=== PATIENT | female | born 1950 | race Caucasian/White ===

== ENCOUNTER 2018-09-14 13:34 | Inpatient (IN) | payer MEDICARE, MEDICAID ==
[2018-09-14] MEDS ORDERED: NORMAL SALINE 1000 ML 1,000 ML IV ONE ×3 (14:05→16:19)
[2018-09-14] MEDS ORDERED: DILTIAZEM HCL/D5W 125 MG/125 ML RTUINJ IV PRN (14:17)
[2018-09-14] MEDS ORDERED: DILTIAZEM HCL INJ 25 MG/5 ML VIAL IV ONE (14:18)
--- NOTE | 2018-09-14 14:25 | ER Document Report ---
ED Blood Sugar Problem - General Chief Complaint: High Blood Sugar Stated Complaint: WEAKNESS/THIRSTY Time Seen by Provider: 09/14/18 13:58 Mode of Arrival: Medic Notes: 68-year-old female with a history of type 1 diabetes and COPD presents the emergency department with increased thirst, dehydration, hyperglycemia, tachycardia, generalized weakness. Patient has insulin pump in place. EMS attempted to check her blood sugar and it was reading high. Patient altered in the ED. Unable to provide history. Daughter at bedside. Says that yesterday patient began complaining of her symptoms. Her blood sugar was in the 300s. Daughter denies complaints of fever, chest pain, shortness of breath, abdominal pain, dysuria, increased urgency. Has a history of cellulitis to the L 4th toe that she is on 2 antibiotics for. Daughter is unsure of the antibiotics. Daughter says the cellulitis is improved. TRAVEL OUTSIDE OF THE [place] IN LAST 30 DAYS: No - HPI Onset: Just prior to arrival Onset/Duration: Sudden Quality of pain: No pain Severity: Severe Associated symptoms: Confusion, Increased thirst, Nausea, Weakness Recently seen / treated by doctor: No - Related Data Allergies/Adverse Reactions: No Known Allergies Allergy (Verified 09/14/18 14:22) Past Medical History - Social History Smoking Status: Former Smoker Family History: Reviewed & Not Pertinent - Past Medical History Cardiac Medical History: Reports: Hx Hypertension Neurological Medical History: Reports: Hx Cerebrovascular Accident Endocrine Medical History: Reports: Hx Diabetes Mellitus Type 1, Hx Hypothyroidism Psychiatric Medical History: Reports: Hx Depression - Immunizations Hx Diphtheria, Pertussis, Tetanus Vaccination: No Review of Systems - Review of Systems Constitutional: Weakness EENT: No symptoms reported Cardiovascular: No symptoms reported Respiratory: No symptoms reported Gastrointestinal: Nausea Genitourinary: No symptoms reported Female Genitourinary: No symptoms reported Musculoskeletal: No symptoms reported Skin: No symptoms reported Neurological/Psychological: Confusion -: Yes All other systems reviewed and negative Physical Exam - Vital signs Vitals: Resp 16 09/14/18 13:40 - Notes Notes: PHYSICAL EXAMINATION: GENERAL: Frail, ill appearing. HEAD: Atraumatic, Awake and alert to person and place. EYES: Pupils equal round and reactive to light, extraocular movements intact, conjunctiva are normal. ENT: Nares patent, oropharynx clear without exudates. Moist mucous membranes. NECK: Normal range of motion, supple without lymphadenopathy LUNGS: Breath sounds clear to auscultation bilaterally and equal. No wheezes rales or rhonchi. HEART: Irregularly irregular ABDOMEN: Soft, nontender, nondistended abdomen. No guarding, no rebound. No masses appreciated. Female : deferred Musculoskeletal: Normal range of motion, no pitting or edema. No cyanosis. No cellulitis appreciated to the L 4th toe where the daughter says it was previously. 2+ DP/PT pulses. NEUROLOGICAL: Cranial nerves grossly intact. Normal speech. Normal sensory, motor exams. PSYCH: Normal mood, normal affect. SKIN: Warm, Dry, normal turgor, no rashes or lesions noted. Course - Re-evaluation Re-evalutation: 09/14/18 14:19 EKG: Ventricular rate 138, QRS duration 112, QTc 528, atrial flutter/ fibrillation. 09/14/18 18:12 On arrival in the ED, Patient unable to provide history. Patient in atrial fibrillation. Given 20mg of cardizem. Labs and imaging ordered for altered mental status. VBG shows a pH of 6.89 with a bicarb of 4.9. Labs resulted and show DKA and hyperkalemia with a potassium of 7.1. Cardizem drip cancelled as the atrial fibrillation likely due to the hyperkalemia. Hyperkalemia treated with insulin drip, bicarb drip, kayexelate, albuterol, and calcium gluconate. WBC elevated. Patient on antibiotics for 4th Left toe cellulitis. Daughter says it's improved. I did not appreciate cellulitis on my physical exam. No tenderness to palpation of the toe. XR obtained. No osteomyelitis appreciated. CXR and urinalysis do not show an acute process. I started the patient on Vancomycin and Zosyn as the patient meets Sirs criteria without an identifiable source. I contacted Dr. Basurto for admission. He came to the bedside and evaluated the patient. Patient currently stable. 09/14/18 18:23 - Vital Signs Vital signs: Temp Pulse Resp BP Pulse Ox 97.0 F 24 H 127/58 H 98 09/14/18 16:40 09/14/18 18:01 09/14/18 18:01 09/14/18 18:01 - Laboratory Result Diagrams: 09/14/18 13:58 09/14/18 13:58 Laboratory results interpreted by me: 09/14/18 09/14/18 09/14/18 13:48 13:58 13:58 WBC 28.8 H MCV 98 H MCHC 29.8 L RDW 14.8 H Seg Neuts % (Manual) 86 H Lymphocytes % (Manual) 7 L Abs Neuts (Manual) 25.6 H VBG pH VBG pCO2 VBG HCO3 Sodium 128.5 L Potassium 7.1 H* Chloride 90 L Carbon Dioxide 5 L* Anion Gap 34 H BUN 29 H Creatinine 1.86 H Est GFR ( Amer) 33 L Est GFR (Non-Af Amer) 27 L Glucose 1040 H* POC Glucose > 550 H* Lactic Acid Alkaline Phosphatase 206 H Urine Protein Urine Glucose (UA) Urine Ketones 09/14/18 09/14/18 09/14/18 13:58 14:15 14:21 WBC MCV MCHC RDW Seg Neuts % (Manual) Lymphocytes % (Manual) Abs Neuts (Manual) VBG pH 6.89 L* VBG pCO2 26.4 L VBG HCO3 4.9 L Sodium Potassium Chloride Carbon Dioxide Anion Gap BUN Creatinine Est GFR ( Amer) Est GFR (Non-Af Amer) Glucose POC Glucose Lactic Acid 6.3 H Alkaline Phosphatase Urine Protein 30 H Urine Glucose (UA) >=500 H Urine Ketones 20 H Discharge - Discharge Clinical Impression: Hyperkalemia, SIRS (systemic inflammatory response syndrome) DKA, type 1 Qualifiers: Diabetes mellitus complication detail: without coma Qualified Code(s): E10.10 - Type 1 diabetes mellitus with ketoacidosis without coma Condition: Serious Disposition: ADMITTED INPATIENT Admitting Provider: Hospitalist Unit Admitted: ICU
[2018-09-14] MEDS ORDERED: ONDANSETRON 4 MG TAB.RAPDIS PO ONE (14:27)
[2018-09-14 14:28] LABS: HEMATOCRIT 41.9 % (36.0-47.0); HEMOGLOBIN 12.5 g/dL (12.0-15.5); MEAN CORPUSCULAR HEMOGLOBIN 29.2 pg (27.0-33.4); MEAN CORPUSCULAR HGB CONC 29.8 g/dL (32.0-36.0); MEAN CORPUSCULAR VOLUME 98 fl (80-97); PLATELET COUNT 369 10^3/uL (150-450); RED BLOOD COUNT 4.27 10^6/uL (3.72-5.28); RED CELL DISTRIBUTION WIDTH 14.8 % (11.5-14.0); WHITE BLOOD COUNT 28.8 10^3/uL (4.0-10.5)
[2018-09-14 14:30] LABS: ALANINE AMINOTRANSFERASE 19 U/L (9-52); ALBUMIN 4.3 g/dL (3.5-5.0); ALKALINE PHOSPHATASE 206 U/L (38-126); ASPARTATE AMINO TRANSFERASE 19 U/L (14-36); BILIRUBIN,DIRECT 0.4 mg/dL (0.0-0.4); BILIRUBIN,TOTAL 0.4 mg/dL (0.2-1.3); BLOOD UREA NITROGEN 29 mg/dL (7-20); TOTAL PROTEIN 6.7 g/dL (6.3-8.2)
[2018-09-14 14:35] LABS: ALCOHOL < 10 mg/dL (NONE DETECTED); CHLORIDE 90 mmol/L (98-107); SODIUM 128.5 mmol/L (137-145)
[2018-09-14 14:39] LABS: ANION GAP 34 (5-19)
[2018-09-14 14:40] LABS: CARBON DIOXIDE 5 mmol/L (22-30); GLUCOSE 1040 mg/dL (75-110); POTASSIUM 7.1 mmol/L (3.6-5.0)
[2018-09-14] MEDS ORDERED: DEXTROSE 40% GEL 15 GM TUBE PO PRN ×6 (14:51→17:42)
[2018-09-14] MEDS ORDERED: NORMAL SALINE 100 ML with INSULIN REGULAR, HUMAN 100 UNIT IV PRN ×4 (14:51→17:42)
[2018-09-14] MEDS ORDERED: DEXTROSE 50%-WATER 25 GM/50 ML DISP.SYRIN IV PRN ×6 (14:51→17:42)
[2018-09-14] MEDS ORDERED: GLUCAGON,HUMAN RECOMB 1 MG INJ IM PRN ×2 (14:51→17:42)
--- NOTE | 2018-09-14 14:51 | RADIOLOGY REPORT (SQ) ---
EXAM DESCRIPTION: CT HEAD WITHOUT COMPLETED DATE/TIME: 09/14/2018 2:34 pm REASON FOR STUDY: ams COMPARISON: 07/24/2015. TECHNIQUE: Axial images acquired through the brain without intravenous contrast. Images reviewed wi th bone, brain and subdural windows. Additional sagittal and coronal reconstructions were generated. Images stored on PACS. All CT scanners at this facility use dose modulation, iterative reconstruction, and/or weight based d osing when appropriate to reduce radiation dose to as low as reasonably achievable (ALARA). [facility]: Dose Right [facility]: CareDose [facility]: Dose Right [facility]: Teradose 4D [facility]: [employer] RADIATION DOSE: CT Rad equipment meets quality standard of care and radiation dose reduction techniq ues were employed. CTDIvol: 53.2 mGy. DLP: 991 mGy-cm. mGy. LIMITATIONS: None. FINDINGS: VENTRICLES: Normal size and contour. CEREBRUM: No masses. No hemorrhage. No midline shift. No evidence for acute infarction. Normal gra y/white matter differentiation. No areas of low density in the white matter. CEREBELLUM: No masses. No hemorrhage. No alteration of density. No evidence for acute infarction. EXTRAAXIAL SPACES: No fluid collections. No masses. ORBITS AND GLOBE: No intra- or extraconal masses. Normal contour of globe without masses. CALVARIUM: No fracture. PARANASAL SINUSES: No fluid or mucosal thickening. SOFT TISSUES: No mass or hematoma. OTHER: No other significant finding. IMPRESSION: NORMAL BRAIN CT WITHOUT CONTRAST. EVIDENCE OF ACUTE STROKE: NO. COMMENT: Quality ID # [id number]: Final reports with documentation of one or more dose reduction techniques (e.g., Automated exposure control, adjustment of the mA and/or kV according to patient size, use of iterative reconstruction technique) TECHNICAL DOCUMENTATION: JOB ID: [id number] [employer]- All Rights Reserved Reading location - IP/workstation name: [email or web address]
[2018-09-14] MEDS ORDERED: ALBUTEROL SULFATE 0.083% NEB 2.5 MG/3 ML AMPUL NEB ONE (14:53)
[2018-09-14] MEDS ORDERED: SODIUM POLYSTYRENE SULFONATE 15 GM/60 ML PO ONE (14:55)
--- NOTE | 2018-09-14 14:55 | RADIOLOGY REPORT (SQ) ---
EXAM DESCRIPTION: CHEST SINGLE VIEW COMPLETED DATE/TIME: 09/14/2018 2:37 pm REASON FOR STUDY: cough COMPARISON: 07/23/2015. NUMBER OF VIEWS: One view. TECHNIQUE: Single frontal radiographic view of the chest acquired. LIMITATIONS: None. FINDINGS: LUNGS AND PLEURA: Pleural and parenchymal scarring. No focal infiltrates, masses or pneum othorax. Nipple shadows in the lower chest. No pleural effusion. Attenuated blood vessels and adriane ened pollo-diaphragms. MEDIASTINUM AND HILAR STRUCTURES: No masses. Contour normal. HEART AND VASCULAR STRUCTURES: Heart normal in size. Normal vasculature. BONES: No acute findings. HARDWARE: None in the chest. OTHER: No other significant finding. IMPRESSION: COPD. CHRONIC SCARRING. NO ACUTE RADIOGRAPHIC FINDING IN THE CHEST. TECHNICAL DOCUMENTATION: JOB ID: [id number] [employer]- All Rights Reserved Reading location - IP/workstation name: [email or web address]
[2018-09-14 14:56] LABS: ABSOLUTE MONOCYTES # (MANUAL) 1.2 10^3/uL (0.1-1.4); ABSOLUTE NEUTROPHILS# (MANUAL) 25.6 10^3/uL (1.7-8.2); BAND NEUTROPHILS % (MANUAL) 3 % (3-5); BASOPHILS % (MANUAL) 0 % (0-2); EOSINOPHILS % (MANUAL) 0 % (0-6); LYMPHOCYTES % (MANUAL) 7 % (13-45); MONOCYTES % (MANUAL) 4 % (3-13); SEGMENTED NEUTROPHILS % (MAN) 86 % (42-78); TOTAL CELLS COUNTED 100
[2018-09-14 14:57] LABS: URINE AMPHETAMINES SCREEN NEGATIVE; URINE BARBITURATES SCREEN NEGATIVE; URINE BENZODIAZEPINES SCREEN NEGATIVE; URINE COCAINE SCREEN NEGATIVE; URINE MARIJUANA (THC) SCREEN NEGATIVE; URINE METHADONE SCREEN NEGATIVE
[2018-09-14 15:00] LABS: ANISOCYTOSIS SLIGHT; BURR CELLS 1+; OVALOCYTES 1+; PLATELET COMMENT ADEQUATE; POIKILOCYTOSIS 2+; TOXIC GRANULATION 1+; TOXIC VACUOLATION PRESENT
[2018-09-14] MEDS ORDERED: CALCIUM GLUCONATE 1000 MG/10 ML INJ IV ONE ×2 (15:00→16:01)
[2018-09-14 15:01] LABS: VENOUS BLOOD BASE EXCESS -27.3 mmol/L; VENOUS BLOOD HCO3 4.9 mmol/L (20-32); VENOUS BLOOD PCO2 26.4 mmHg (35-63)
[2018-09-14 15:02] LABS: URINE PHENCYCLIDINE SCREEN NEGATIVE
[2018-09-14] MEDS ORDERED: INSULIN REG, HUMAN 100 UNIT/ML 3 ML VIAL (PYX) ONE (15:02)
[2018-09-14 15:03] LABS: APPEARANCE,URINE SLIGHTLY-CLOUDY; BILIRUBIN,URINE NEGATIVE (NEGATIVE); COLOR,URINE YELLOW; GLUCOSE, URINE >=500 mg/dL (NEGATIVE); KETONES,URINE 20 mg/dL (NEGATIVE); LEUKOCYTE ESTERASE,URINE NEGATIVE (NEGATIVE); NITRITE,URINE NEGATIVE (NEGATIVE); PROTEIN,URINE 30 mg/dL (NEGATIVE); URINE SPECIFIC GRAVITY 1.018; UROBILINOGEN,URINE NEGATIVE mg/dL (<2.0)
[2018-09-14 15:05] LABS: VENOUS BLOOD PH 6.89 (7.30-7.42)
[2018-09-14] MEDS ORDERED: DEXTROSE 5%-WATER 1000 ML 1,000 ML with SODIUM BICARBONATE 150 MEQ IV PRN ×2 (15:17)
[2018-09-14] MEDS ORDERED: SODIUM BICARBONATE 8.4% INJ 50 MEQ/50 ML DISP.SYRIN ONE (15:30)
[2018-09-14] MEDS ORDERED: PIPERACILLIN/TAZOBACTAM 3.375 GM VIAL IV ONE (16:02)
[2018-09-14] MEDS ORDERED: VANCOMYCIN HCL INJ 1000 MG VIAL IV ONE (16:02)
--- NOTE | 2018-09-14 16:16 | RADIOLOGY REPORT (SQ) ---
EXAM DESCRIPTION: FOOT LEFT COMPLETE COMPLETED DATE/TIME: 09/14/2018 4:04 pm REASON FOR STUDY: cellulitis COMPARISON: None. NUMBER OF VIEWS: Three views. TECHNIQUE: AP, lateral and oblique radiographic images acquired of the left foot. LIMITATIONS: None. FINDINGS: MINERALIZATION: Normal. BONES: No acute fracture or dislocation. There is no plain film evidence for bony involvement by ost eomyelitis. JOINTS: No effusions. SOFT TISSUES: No soft tissue swelling. No foreign body. OTHER: No other significant finding. IMPRESSION: No plain film evidence for bony involvement by osteomyelitis. Other findings as noted kamala ordonez TECHNICAL DOCUMENTATION: JOB ID: [id number] [employer]- All Rights Reserved Reading location - IP/workstation name: [email or web address]
[2018-09-14] MEDS ORDERED: ONDANSETRON HCL INJ/PF 4 MG/2 ML SDV IV PRN (17:33)
[2018-09-14] MEDS ORDERED: ACETAMINOPHEN 650 MG SUPP.RECT PR PRN (17:33)
[2018-09-14] MEDS ORDERED: GLUCAGON,HUMAN RECOMB 1 MG INJ SUBCUT PRN (17:33)
[2018-09-14] MEDS: NORMAL SALINE 1000 ML 1,000 ML IV PRN (18:23)
[2018-09-14] MEDS ORDERED: NICOTINE 14 MG/24 HR PATCH.TD24 TD PRN (18:26)
--- NOTE | 2018-09-14 18:28 | PDOC H&P ---
History of Present Illness Admission Date/PCP: 09/14/18 17:11 MACARIO CHARLES MD Patient complains of: High blood sugars History of Present Illness: TELMA STUART is a 68 year old female with history of type 1 diabetes mellitus, COPD, emphysema brought to the emergency room by EMS. According to the ER notes and discussion with the ER physician the family found the patient in altered mental status and called the EMS EMS found the blood sugars are very high and in the emergency room patient arrived with altered mental status. Patient unable to provide much history. No complaints of fever shortness of breath or chest pains painful urination from the daughter. Apparently patient is taking antibiotics for left fourth toe infection for the last last 3-4 weeks. No other history is available. Past Medical History Cardiac Medical History: Reports: Hypertension Endocrine Medical History: Reports: Diabetes Mellitus Type 1, Hypothyroidism Psychiatric Medical History: Reports: Depression Past Surgical History Past Surgical History: Reports: Cholecystectomy Social History Smoking Status: Current Every Day Smoker Frequency of Alcohol Use: None Hx Recreational Drug Use: No Hx Prescription Drug Abuse: No - Advance Directive Resuscitation Status: Full Code Family History Family History: Reviewed & Not Pertinent Parental Family History Reviewed: Yes Children Family History Reviewed: Yes Sibling(s) Family History Reviewed.: Yes Medication/Allergy Home Medications: Aspirin [Aspirin 81 mg Chewable Tablet] 81 mg PO DAILY 07/23/15 Citalopram Hydrobromide [Celexa 20 mg Tablet] 20 mg PO DAILY 07/23/15 Lisinopril [Zestril] 2.5 mg PO DAILY 07/23/15 Trazodone HCl 100 mg PO BID 07/23/15 Cholestyramine/Aspartame [Questran Light 4 gm Packet] 4 gm PO MEALSHS #60 packet 07/29/15 Ciprofloxacin HCl [Cipro 500 mg Tablet] 500 mg PO BID #14 tablet 07/29/15 Levothyroxine Sodium [Synthroid] 200 mcg PO DAILY #30 tablet 07/29/15 Metoclopramide HCl [Reglan 10 mg Tablet] 10 mg PO ACHS #60 tablet 07/29/15 Metronidazole [Flagyl 500 mg Tablet] 500 mg PO TID #21 tablet 07/29/15 Promethazine HCl [Phenergan 25 mg Tablet] 25 mg PO Q4HP PRN #20 tablet 07/29/15 Allergies/Adverse Reactions: No Known Allergies Allergy (Verified 09/14/18 14:22) Review of Systems Constitutional: ABSENT: fever(s), headache(s), weight gain, weight loss Eyes: ABSENT: visual disturbances Ears: ABSENT: hearing changes Cardiovascular: ABSENT: chest pain, edema Respiratory: ABSENT: cough, dyspnea, sputum Gastrointestinal: ABSENT: nausea Neurological: PRESENT: other - Patient is confused. She is trying her best to communicate but incoherent. Physical Exam Vital Signs: Temp Pulse Resp BP Pulse Ox 97.0 F 19 144/54 H 99 09/14/18 16:40 09/14/18 17:02 09/14/18 17:01 09/14/18 17:02 Intake & Output 09/13/18 09/14/18 09/15/18 06:59 06:59 06:59 Output Total 650 Balance -650 General appearance: PRESENT: severe distress Head exam: PRESENT: atraumatic Eye exam: PRESENT: PERRLA Mouth exam: PRESENT: dry mucosa Neck exam: ABSENT: carotid bruit, JVD, lymphadenopathy, thyromegaly Respiratory exam: PRESENT: tachypnea Cardiovascular exam: PRESENT: tachycardia GI/Abdominal exam: PRESENT: normal bowel sounds, soft. ABSENT: tenderness Extremities exam: PRESENT: full ROM. ABSENT: calf tenderness, clubbing, pedal edema Neurological exam: PRESENT: altered, other Psychiatric exam: PRESENT: anxious Results Impressions: Chest X-Ray 09/14/18 14:06 IMPRESSION: COPD. CHRONIC SCARRING. NO ACUTE RADIOGRAPHIC FINDING IN THE CHEST. Head CT 09/14/18 14:07 IMPRESSION: NORMAL BRAIN CT WITHOUT CONTRAST. EVIDENCE OF ACUTE STROKE: NO. Foot X-Ray 09/14/18 15:35 IMPRESSION: No plain film evidence for bony involvement by osteomyelitis. Other findings as noted above Assessment & Plan - Diagnosis (1) Diabetic ketoacidosis Qualifiers: Diabetes mellitus type: type 1 Diabetes mellitus complication detail: without coma Qualified Code(s): E10.10 - Type 1 diabetes mellitus with ketoacidosis without coma Is this a current diagnosis for this admission?: Yes Plan: 09/14/2018-patient is condition is critical prognosis is poor. Plan to admit in ICU. She is going to be n.p.o., started on IV fluids normal saline at 125 cc /h, started on insulin drip as per the protocol, sepsis core measures implemented, she is going to be on Invanz 1 g daily, vancomycin 1 g IV to be adjusted by the adjusted by the pharmacist as per the trough levels, follow-up lactic acid levels were requested, requested for chemistry every 6 hours, to check the blood sugars every hour as per the protocol, the latest blood sugars are thousand 40. ABG bicarb 5. 6.89. Hopefully with the insulin drip IV hydration and also with IV bicarb drip to metabolic acidosis may resolve for a couple of days. Mentioned above she was also started on IV bicarbonate. (2) Hyperkalemia Is this a current diagnosis for this admission?: Yes Plan: 09/14/2018-patient came in with potassium of 7.1 she was given calcium gluconate in the ER Kayexalate in the ER started on insulin drip and IV fluids were going to repeat the potassium around 8 PM hyperemic kalemia may be contributing to the new onset A. fib. EKG does not show any peaked T waves. (3) SIRS (systemic inflammatory response syndrome) Is this a current diagnosis for this admission?: Yes Plan: 09/14/2018 patient [place] the sepsis criteria. She is tachycardic tachypneic with lactic acid level of 6.3 and WBC count of 28,000. We are going to repeat the lactic acid levels. IV fluids normal saline 100 cc/h. Blood cultures sputum cultures urine cultures were requested. Patient is on Invanz and vancomycin. (4) Acute kidney failure Is this a current diagnosis for this admission?: Yes Plan: 09/14/2018 patient's baseline creatinine is 0.05 2.06. Today it is 1.86. Acute AK I secondary to uncontrolled diabetes mellitus with polyuria polydipsia. With IV fluids hopefully the AKA will resolve in a day 2. (5) Hyponatremia Is this a current diagnosis for this admission?: Yes Plan: 09/14/2018-sodium levels are 128 today, blood sugars are thousand plus corrected sodium is probably around 136. To continue to monitor the renal function on regular basis. (6) Diabetes mellitus type 1 Is this a current diagnosis for this admission?: Yes Plan: 09/14/2018-patient history of type 1 diabetes mellitus taking insulin by insulin pump at home unfortunately we do not have the exact most of the home insulin doses. (7) Smoker Is this a current diagnosis for this admission?: Yes Plan: 09/14/2018 patient history of chronic smoking. She smokes at least half pack per day. We are going to put her on nicotine patch. (8) COPD (chronic obstructive pulmonary disease) Is this a current diagnosis for this admission?: Yes Plan: 09/14/2018 patient has history of COPD. On examination chest bilateral entry was decreased no wheezing no crepitations. put her on albuterol albuterol nebulization every 4 as needed. - Time Time Spent: 50 to 70 Minutes Critical Time spent with patient: 25-34 minutes Medications reviewed and adjusted accordingly: Yes
[2018-09-14 18:44] LABS: ALANINE AMINOTRANSFERASE 16 U/L (9-52); ALKALINE PHOSPHATASE 153 U/L (38-126); ASPARTATE AMINO TRANSFERASE 17 U/L (14-36); BILIRUBIN,DIRECT 0.3 mg/dL (0.0-0.4); BILIRUBIN,TOTAL 0.3 mg/dL (0.2-1.3); BLOOD UREA NITROGEN 29 mg/dL (7-20); CALCIUM 7.7 mg/dL (8.4-10.2); TOTAL PROTEIN 5.2 g/dL (6.3-8.2)
[2018-09-14 18:53] LABS: CREATINE KINASE MB 1.77 ng/mL (<4.55); TROPONIN I 0.016 ng/mL
--- NOTE | 2018-09-14 18:54 | EKG REPORT ---
SEVERITY:- ABNORMAL ECG - SINUS TACHYCARDIA NONSPECIFIC IVCD WITH LAD INFERIOR INFARCT, AGE INDETERMINATE : Confirmed by: Lui Silverio MD 14-Sep-2018 18:54:00
[2018-09-14 19:04] LABS: CHLORIDE 102 mmol/L (98-107)
[2018-09-14 19:05] LABS: ANION GAP 24 (5-19); SODIUM 131.5 mmol/L (137-145)
[2018-09-14 19:07] LABS: CARBON DIOXIDE 6 mmol/L (22-30)
[2018-09-14 19:08] LABS: GLUCOSE 837 mg/dL (75-110)
[2018-09-14] MEDS: WATER FOR INJECTION,STERILE 1,000 ML with SODIUM BICARBONATE 150 MEQ IV PRN ×2 (19:32)
[2018-09-14 21:26] LABS: ARTERIAL BLOOD BASE EXCESS -11.5 mmol/L; ARTERIAL BLOOD H2CO3 0.76 mmol/L (1.05-1.35); ARTERIAL BLOOD O2 SATURATION 93.9 % (94-98); ARTERIAL BLOOD PCO2 25.2 mmHg (35-45); ARTERIAL BLOOD PH 7.33 (7.35-7.45); ARTERIAL BLOOD PO2 72.3 mmHg (80-100); ARTERIAL BLOOD TOTAL CO2 13.8 mmol/L (21-25)
[2018-09-14 21:32] LABS: ARTERIAL BLOOD FIO2 21%
[2018-09-14] MEDS: FAMOTIDINE INJ/PF 20 MG/2 ML SDV IV SCH (22:20)
[2018-09-15 00:27] LABS: CREATINE KINASE MB 3.57 ng/mL (<4.55)
[2018-09-15 00:29] LABS: TROPONIN I 0.239 ng/mL
[2018-09-15 00:38] LABS: ALANINE AMINOTRANSFERASE 16 U/L (9-52); ALBUMIN 3.1 g/dL (3.5-5.0); ALKALINE PHOSPHATASE 121 U/L (38-126); ANION GAP 10 (5-19); ASPARTATE AMINO TRANSFERASE 20 U/L (14-36); BILIRUBIN,DIRECT 0.2 mg/dL (0.0-0.4); BILIRUBIN,TOTAL 0.4 mg/dL (0.2-1.3); BLOOD UREA NITROGEN 27 mg/dL (7-20); CHLORIDE 106 mmol/L (98-107); SODIUM 135.7 mmol/L (137-145); TOTAL PROTEIN 5.3 g/dL (6.3-8.2)
[2018-09-15 00:55] LABS: CARBON DIOXIDE 20 mmol/L (22-30); POTASSIUM 3.5 mmol/L (3.6-5.0)
[2018-09-15 00:56] LABS: GLUCOSE 482 mg/dL (75-110)
[2018-09-15] MEDS: METOPROLOL TARTRATE PF/INJ 5 MG/5 ML SDV IV SCH ×2 (01:59→05:00)
[2018-09-15] MEDS: NORMAL SALINE 1000 ML 1,000 ML IV PRN ×2 (03:01→21:26)
[2018-09-15] MEDS ORDERED: ACETAMINOPHEN 1,000 MG/100 ML RTUPB IV ONE (05:45)
[2018-09-15 06:01] LABS: APPEARANCE,URINE SLIGHTLY-CLOUDY; BILIRUBIN,URINE NEGATIVE (NEGATIVE); COLOR,URINE YELLOW; GLUCOSE, URINE >=500 mg/dL (NEGATIVE); KETONES,URINE 20 mg/dL (NEGATIVE); LEUKOCYTE ESTERASE,URINE NEGATIVE (NEGATIVE); NITRITE,URINE NEGATIVE (NEGATIVE); PROTEIN,URINE 100 mg/dL (NEGATIVE); UROBILINOGEN,URINE NEGATIVE mg/dL (<2.0)
[2018-09-15 06:07] LABS: HEMATOCRIT 27.8 % (36.0-47.0); MEAN CORPUSCULAR HEMOGLOBIN 29.5 pg (27.0-33.4); MEAN CORPUSCULAR HGB CONC 35.2 g/dL (32.0-36.0); PLATELET COUNT 246 10^3/uL (150-450); RED BLOOD COUNT 3.32 10^6/uL (3.72-5.28); RED CELL DISTRIBUTION WIDTH 13.3 % (11.5-14.0); WHITE BLOOD COUNT 19.7 10^3/uL (4.0-10.5)
[2018-09-15 06:11] LABS: INTERNATIONAL RATION (INR) 1.01; PROTHROMBIN TIME 13.8 SEC (11.4-15.4)
[2018-09-15 06:22] LABS: ALANINE AMINOTRANSFERASE 19 U/L (9-52); ALBUMIN 2.7 g/dL (3.5-5.0); ALKALINE PHOSPHATASE 96 U/L (38-126); ANION GAP 5 (5-19); ASPARTATE AMINO TRANSFERASE 23 U/L (14-36); BILIRUBIN,DIRECT 0.2 mg/dL (0.0-0.4); BILIRUBIN,TOTAL 0.5 mg/dL (0.2-1.3); BLOOD UREA NITROGEN 26 mg/dL (7-20); CALCIUM 7.9 mg/dL (8.4-10.2); CARBON DIOXIDE 27 mmol/L (22-30); CHLORIDE 110 mmol/L (98-107); CHOLESTEROL 77.56 mg/dL (0-200); CREATINE KINASE 111 U/L (30-135); GLUCOSE 130 mg/dL (75-110); SODIUM 142.1 mmol/L (137-145); TOTAL PROTEIN 5.2 g/dL (6.3-8.2); TRIGLYCERIDES 57 mg/dL (<150)
[2018-09-15 06:33] LABS: DIRECT LDL 39 mg/dL (<100)
[2018-09-15 06:34] LABS: HEMOGLOBIN 9.8 g/dL (12.0-15.5); MEAN CORPUSCULAR VOLUME 84 fl (80-97)
[2018-09-15 06:36] LABS: ABSOLUTE MONOCYTES # (MANUAL) 0.6 10^3/uL (0.1-1.4); ABSOLUTE NEUTROPHILS# (MANUAL) 18.1 10^3/uL (1.7-8.2); BAND NEUTROPHILS % (MANUAL) 2 % (3-5); BASOPHILS % (MANUAL) 0 % (0-2); EOSINOPHILS % (MANUAL) 0 % (0-6); LYMPHOCYTES % (MANUAL) 5 % (13-45); MONOCYTES % (MANUAL) 3 % (3-13); SEGMENTED NEUTROPHILS % (MAN) 90 % (42-78); TOTAL CELLS COUNTED 100
[2018-09-15 06:37] LABS: OVALOCYTES 1+; POIKILOCYTOSIS 1+
[2018-09-15 06:38] LABS: PLATELET COMMENT ADEQUATE; PLATELET LARGE PRESENT
[2018-09-15 06:43] LABS: CREATINE KINASE MB 3.87 ng/mL (<4.55); TROPONIN I 0.852 ng/mL
[2018-09-15] MEDS: WATER FOR INJECTION,STERILE 1,000 ML with SODIUM BICARBONATE 150 MEQ IV PRN ×2 (06:51)
--- NOTE | 2018-09-15 07:38 | EKG REPORT ---
SEVERITY:- ABNORMAL ECG - SINUS TACHYCARDIA WITH PACS REPOL ABNRM SUGGESTS ISCHEMIA, INFERIOR-LATERAL LEADS : Confirmed by: Lui Silverio MD 15-Sep-2018 07:38:21
[2018-09-15] MEDS ORDERED: DEXTROSE 50%-WATER 25 GM/50 ML DISP.SYRIN IV PRN ×2 (08:33)
[2018-09-15] MEDS ORDERED: DEXTROSE 40% GEL 15 GM TUBE PO PRN ×2 (08:33)
[2018-09-15] MEDS ORDERED: GLUCAGON,HUMAN RECOMB 1 MG INJ IM PRN (08:33)
[2018-09-15] MEDS: POTASSIUM CHLORIDE 20 MEQ/50 ML RTU IV SCH ×3 (08:52→11:33)
[2018-09-15] MEDS ORDERED: ENOXAPARIN SODIUM INJ 40 MG/0.4 ML DISP.SYRIN SUBCUT SCH (10:00)
[2018-09-15] MEDS ORDERED: ERTAPENEM SODIUM INJ 1 GM VIAL IV SCH (10:00)
[2018-09-15] MEDS ORDERED: VANCOMYCIN HCL INJ 1000 MG VIAL IV SCH (10:00)
[2018-09-15] MEDS: ENOXAPARIN SODIUM INJ 30 MG/0.3 ML DISP.SYRIN SUBCUT SCH (11:33)
[2018-09-15] MEDS: FAMOTIDINE INJ/PF 20 MG/2 ML SDV IV SCH ×2 (11:33→21:18)
[2018-09-15] MEDS: INSULIN GLARGINE,HUM.REC.ANLOG 300 UNIT/3 ML INSULN.PEN SUBCUT SCH ×2 (11:42→21:17)
[2018-09-15] MEDS: METOPROLOL TARTRATE 25 MG TABLET PO SCH ×2 (11:47→21:17)
[2018-09-15] MEDS: ASPIRIN 325 MG TABLET PO SCH (11:47)
[2018-09-15] MEDS: ERTAPENEM SODIUM 1 GM in NORMAL SALINE 50 ML IV SCH (11:47)
[2018-09-15 12:26] LABS: ALANINE AMINOTRANSFERASE 25 U/L (9-52); ALBUMIN 2.9 g/dL (3.5-5.0); ALKALINE PHOSPHATASE 94 U/L (38-126); ANION GAP 11 (5-19); ASPARTATE AMINO TRANSFERASE 31 U/L (14-36); BILIRUBIN,DIRECT 0.3 mg/dL (0.0-0.4); BILIRUBIN,TOTAL 0.7 mg/dL (0.2-1.3); BLOOD UREA NITROGEN 26 mg/dL (7-20); CALCIUM 7.8 mg/dL (8.4-10.2); CARBON DIOXIDE 22 mmol/L (22-30); CHLORIDE 108 mmol/L (98-107); GLUCOSE 216 mg/dL (75-110); POTASSIUM 3.6 mmol/L (3.6-5.0); TOTAL PROTEIN 5.3 g/dL (6.3-8.2)
[2018-09-15] MEDS: INSULIN LISPRO 100 UNIT/ML 3 ML VIAL SUBCUT PRN ×2 (12:51→15:58)
[2018-09-15] MEDS ORDERED: VANCOMYCIN HCL 400 MG in DEXTROSE 5%-WATER 100 ML IV SCH (15:00)
[2018-09-15 18:09] LABS: ALANINE AMINOTRANSFERASE 24 U/L (9-52); ALBUMIN 2.7 g/dL (3.5-5.0); ALKALINE PHOSPHATASE 88 U/L (38-126); ANION GAP 6 (5-19); ASPARTATE AMINO TRANSFERASE 32 U/L (14-36); BILIRUBIN,DIRECT 0.2 mg/dL (0.0-0.4); BILIRUBIN,TOTAL 0.5 mg/dL (0.2-1.3); BLOOD UREA NITROGEN 24 mg/dL (7-20); CALCIUM 7.9 mg/dL (8.4-10.2); CARBON DIOXIDE 26 mmol/L (22-30); CHLORIDE 107 mmol/L (98-107); GLUCOSE 149 mg/dL (75-110); POTASSIUM 3.6 mmol/L (3.6-5.0); TOTAL PROTEIN 5.1 g/dL (6.3-8.2)
--- NOTE | 2018-09-15 20:09 | PDOC PROGRESS REPORT ---
Subjective Progress Note for:: 09/15/18 Subjective:: This is a 68 yr female with history of COPD and diabetes mellitus who was initially brought into the acute encephalopathy and was found to be in DKA, acute renal failure was also noted to have lactic acidosis. Patient was given IV fluids and was started on insulin drip and was admitted to the ICU. Patient educated to resolve and her insulin drip was discontinued this morning at 6 AM. Upon encounter, patient was coherent and was well oriented. She denies acute complaints. Denies chest pain, shortness of breath, nausea, vomiting or abdominal pain. Patient did later expressed that she wants to be transferred to [facility] for personal preference as she says she always goes to [facility] for all her hospitalizations. I did call transfer center and was told that they are full and it will be a 24-48-hour wait. Patient was informed and she was amenable to staying here at [place]. Reason For Visit: DIABETIC KETOACIDOSIS Physical Exam Vital Signs: Temp Pulse Resp BP Pulse Ox 99.5 F 80 26 H 129/65 H 94 09/15/18 18:00 09/15/18 18:00 09/15/18 18:01 09/15/18 18:00 09/15/18 18:01 Intake & Output 09/14/18 09/15/18 09/16/18 06:59 06:59 06:59 Intake Total 3853 121 Output Total 1515 520 Balance 2338 -399 Weight 106 lb 14.787 oz General appearance: PRESENT: no acute distress, well-developed, well-nourished Head exam: PRESENT: atraumatic, normocephalic Eye exam: PRESENT: conjunctiva pink, EOMI, PERRLA. ABSENT: scleral icterus Ear exam: PRESENT: normal external ear exam Mouth exam: PRESENT: moist, tongue midline Neck exam: ABSENT: carotid bruit, JVD, lymphadenopathy, thyromegaly Respiratory exam: PRESENT: clear to auscultation reynold. ABSENT: rales, rhonchi, wheezes Cardiovascular exam: PRESENT: RRR. ABSENT: diastolic murmur, rubs, systolic murmur Pulses: PRESENT: normal dorsalis pedis pul GI/Abdominal exam: PRESENT: normal bowel sounds, soft. ABSENT: distended, guarding, mass, organolmegaly, rebound, tenderness Rectal exam: PRESENT: deferred Extremities exam: PRESENT: other - small resolving furuncle with minimal erythema on the 4th toe of the left foot Neurological exam: PRESENT: alert, oriented to person, oriented to time, oriented to situation Results Laboratory Results: 09/15/18 05:55 09/15/18 17:29 09/14/18 09/14/18 09/14/18 21:14 22:00 23:45 WBC RBC Hgb Hct MCV MCH MCHC RDW Plt Count Seg Neutrophils % Lymphocytes % Monocytes % Eosinophils % Basophils % Absolute Neutrophils Absolute Lymphocytes Absolute Monocytes Absolute Eosinophils Absolute Basophils Carbonic Acid 0.76 L HCO3/H2CO3 Ratio 17:1 ABG pH 7.33 L ABG pCO2 25.2 L ABG pO2 72.3 L ABG HCO3 13.0 L ABG O2 Saturation 93.9 L ABG Base Excess -11.5 FiO2 21% Sodium 135.7 L Potassium 3.5 L D Chloride 106 Carbon Dioxide 20 L D Anion Gap 10 BUN 27 H Creatinine 1.17 Est GFR ( Amer) 56 L Est GFR (Non-Af Amer) 46 L Glucose 527 H* 482 H* Calcium 8.0 L Magnesium Total Bilirubin 0.4 AST 20 ALT 16 Alkaline Phosphatase 121 Total Protein 5.3 L Albumin 3.1 L Triglycerides Cholesterol LDL Cholesterol Direct VLDL Cholesterol HDL Cholesterol TSH Urine Color Urine Appearance Urine pH Ur Specific [place] Urine Protein Urine Glucose (UA) Urine Ketones Urine Blood Urine Nitrite Ur Leukocyte Esterase Urine WBC (Auto) Urine RBC (Auto) 09/15/18 09/15/18 09/15/18 05:05 05:55 05:55 WBC 19.7 H RBC 3.32 L Hgb 9.8 L D Hct 27.8 L MCV 84 D MCH 29.5 MCHC 35.2 RDW 13.3 Plt Count 246 Seg Neutrophils % Not Reportable Lymphocytes % Not Reportable Monocytes % Not Reportable Eosinophils % Not Reportable Basophils % Not Reportable Absolute Neutrophils Not Reportable Absolute Lymphocytes Not Reportable Absolute Monocytes Not Reportable Absolute Eosinophils Not Reportable Absolute Basophils Not Reportable Carbonic Acid HCO3/H2CO3 Ratio ABG pH ABG pCO2 ABG pO2 ABG HCO3 ABG O2 Saturation ABG Base Excess FiO2 Sodium 142.1 Potassium 3.0 L* Chloride 110 H Carbon Dioxide 27 Anion Gap 5 BUN 26 H Creatinine 1.00 Est GFR ( Amer) > 60 Est GFR (Non-Af Amer) 55 L Glucose 130 H Calcium 7.9 L Magnesium 2.0 Total Bilirubin 0.5 AST 23 ALT 19 Alkaline Phosphatase 96 Total Protein 5.2 L Albumin 2.7 L Triglycerides 57 Cholesterol 77.56 LDL Cholesterol Direct 39 VLDL Cholesterol 11.0 HDL Cholesterol 39 L TSH Urine Color YELLOW Urine Appearance SLIGHTLY-CLOUDY Urine pH 5.0 Ur Specific [place] 1.020 Urine Protein 100 H Urine Glucose (UA) >=500 H Urine Ketones 20 H Urine Blood MODERATE H Urine Nitrite NEGATIVE Ur Leukocyte Esterase NEGATIVE Urine WBC (Auto) 5 Urine RBC (Auto) 2 09/15/18 09/15/18 09/15/18 05:55 11:52 17:29 WBC RBC Hgb Hct MCV MCH MCHC RDW Plt Count Seg Neutrophils % Lymphocytes % Monocytes % Eosinophils % Basophils % Absolute Neutrophils Absolute Lymphocytes Absolute Monocytes Absolute Eosinophils Absolute Basophils Carbonic Acid HCO3/H2CO3 Ratio ABG pH ABG pCO2 ABG pO2 ABG HCO3 ABG O2 Saturation ABG Base Excess FiO2 Sodium 141.0 139.0 Potassium 3.6 3.6 Chloride 108 H 107 Carbon Dioxide 22 26 Anion Gap 11 6 BUN 26 H 24 H Creatinine 0.84 0.81 Est GFR ( Amer) > 60 > 60 Est GFR (Non-Af Amer) > 60 > 60 Glucose 216 H 149 H Calcium 7.8 L 7.9 L Magnesium Total Bilirubin 0.7 0.5 AST 31 32 ALT 25 24 Alkaline Phosphatase 94 88 Total Protein 5.3 L 5.1 L Albumin 2.9 L 2.7 L Triglycerides Cholesterol LDL Cholesterol Direct VLDL Cholesterol HDL Cholesterol TSH 0.57 Urine Color Urine Appearance Urine pH Ur Specific [place] Urine Protein Urine Glucose (UA) Urine Ketones Urine Blood Urine Nitrite Ur Leukocyte Esterase Urine WBC (Auto) Urine RBC (Auto) 09/14/18 09/14/18 09/14/18 18:18 18:18 23:44 Creatine Kinase 52 84 CK-MB (CK-2) 1.77 Troponin I 0.016 NT-Pro-B Natriuret Pep 09/14/18 09/15/18 09/15/18 23:44 05:55 05:55 Creatine Kinase 111 CK-MB (CK-2) 3.57 3.87 Troponin I 0.239 0.852 NT-Pro-B Natriuret Pep 6250 H Impressions: Chest X-Ray 09/14/18 14:06 IMPRESSION: COPD. CHRONIC SCARRING. NO ACUTE RADIOGRAPHIC FINDING IN THE CHEST. Head CT 09/14/18 14:07 IMPRESSION: NORMAL BRAIN CT WITHOUT CONTRAST. EVIDENCE OF ACUTE STROKE: NO. Foot X-Ray 09/14/18 15:35 IMPRESSION: No plain film evidence for bony involvement by osteomyelitis. Other findings as noted above Assessment & Plan - Diagnosis (1) Diabetic ketoacidosis Qualifiers: Diabetes mellitus type: type 1 Diabetes mellitus complication detail: without coma Qualified Code(s): E10.10 - Type 1 diabetes mellitus with ketoacidosis without coma Is this a current diagnosis for this admission?: Yes Plan: Resolved. Will advance patient's diet. Will start Lantus at 8 units twice daily. Hemoglobin A1c was elevated at 9.3. Patient says that she was on an insulin pump but this was removed before she was brought into the ER. (2) Acute kidney failure Is this a current diagnosis for this admission?: Yes Plan: Resolved with IV fluids. Creatinine trended down from 1.8-0.8. (3) Elevated troponin Is this a current diagnosis for this admission?: Yes Plan: Troponin at 0.3. EKGs unremarkable. she is not having any chest pain or SOB. Awaiting cardio evaluation and recommendations. - Time Time Spent with patient: 15-24 minutes
[2018-09-15 20:48] LABS: ANION GAP 7 (5-19); BLOOD UREA NITROGEN 23 mg/dL (7-20); CALCIUM 7.9 mg/dL (8.4-10.2); CARBON DIOXIDE 23 mmol/L (22-30); CHLORIDE 106 mmol/L (98-107); GLUCOSE 155 mg/dL (75-110); POTASSIUM 3.9 mmol/L (3.6-5.0); SODIUM 136.1 mmol/L (137-145)
--- NOTE | 2018-09-15 21:33 | PDOC CONSULTATION ---
Consultation-Blank Consultation: CARDIOLOGY CONSULTATION by Dr. Tiff Rutherford on 09/15/2018. REASON FOR CONSULTATION: Patient with elevated troponin I.
[2018-09-16 00:05] LABS: ALBUMIN 2.7 g/dL (3.5-5.0); ANION GAP 7 (5-19); BLOOD UREA NITROGEN 21 mg/dL (7-20); CARBON DIOXIDE 23 mmol/L (22-30); CHLORIDE 106 mmol/L (98-107); GLUCOSE 142 mg/dL (75-110); POTASSIUM 3.5 mmol/L (3.6-5.0); SODIUM 135.8 mmol/L (137-145)
[2018-09-16 00:06] LABS: ALANINE AMINOTRANSFERASE 27 U/L (9-52); ALKALINE PHOSPHATASE 83 U/L (38-126); ASPARTATE AMINO TRANSFERASE 32 U/L (14-36); BILIRUBIN,DIRECT 0.2 mg/dL (0.0-0.4); BILIRUBIN,TOTAL 0.5 mg/dL (0.2-1.3)
[2018-09-16] MEDS: METOPROLOL TARTRATE PF/INJ 5 MG/5 ML SDV IV SCH (00:13)
[2018-09-16 06:55] LABS: ABSOLUTE EOSINOPHILS # (AUTO) 0.5 10^3/uL (0.0-0.6); ABSOLUTE LYMPHOCYTES (AUTO) 1.5 10^3/uL (0.5-4.7); ABSOLUTE MONOCYTES (AUTO) 0.6 10^3/uL (0.1-1.4); BASOPHILS % (AUTO) 0.3 % (0-2); EOSINOPHILS % (AUTO) 3.4 % (0-6); HEMATOCRIT 30.8 % (36.0-47.0); HEMOGLOBIN 10.4 g/dL (12.0-15.5); LYMPHOCYTES % (AUTO) 10.2 % (13-45); MEAN CORPUSCULAR HEMOGLOBIN 28.9 pg (27.0-33.4); MEAN CORPUSCULAR HGB CONC 33.8 g/dL (32.0-36.0); MEAN CORPUSCULAR VOLUME 86 fl (80-97); MONOCYTES % (AUTO) 4.2 % (3-13); PLATELET COUNT 203 10^3/uL (150-450); RED BLOOD COUNT 3.59 10^6/uL (3.72-5.28); RED CELL DISTRIBUTION WIDTH 13.8 % (11.5-14.0); SEGMENTED NEUTROPHILS % (AUTO) 81.9 % (42-78); TOTAL CELLS COUNTED % (AUTO) 100 %; WHITE BLOOD COUNT 14.7 10^3/uL (4.0-10.5)
[2018-09-16 07:15] LABS: ALANINE AMINOTRANSFERASE 23 U/L (9-52); ALBUMIN 2.8 g/dL (3.5-5.0); ALKALINE PHOSPHATASE 92 U/L (38-126); ANION GAP 6 (5-19); ASPARTATE AMINO TRANSFERASE 41 U/L (14-36); BILIRUBIN,DIRECT 0.2 mg/dL (0.0-0.4); BILIRUBIN,TOTAL 0.7 mg/dL (0.2-1.3); BLOOD UREA NITROGEN 20 mg/dL (7-20); CALCIUM 8.3 mg/dL (8.4-10.2); CARBON DIOXIDE 26 mmol/L (22-30); CHLORIDE 106 mmol/L (98-107); GLUCOSE 114 mg/dL (75-110); POTASSIUM 3.5 mmol/L (3.6-5.0); SODIUM 138.1 mmol/L (137-145); TOTAL PROTEIN 5.3 g/dL (6.3-8.2)
[2018-09-16] MEDS: ASPIRIN 325 MG TABLET PO SCH (09:16)
[2018-09-16] MEDS: METOPROLOL TARTRATE 25 MG TABLET PO SCH (09:16)
[2018-09-16] MEDS: FAMOTIDINE INJ/PF 20 MG/2 ML SDV IV SCH (09:17)
[2018-09-16] MEDS: ERTAPENEM SODIUM 1 GM in NORMAL SALINE 50 ML IV SCH (09:19)
[2018-09-16] MEDS: ENOXAPARIN SODIUM INJ 30 MG/0.3 ML DISP.SYRIN SUBCUT SCH (09:19)
[2018-09-16] MEDS: INSULIN GLARGINE,HUM.REC.ANLOG 300 UNIT/3 ML INSULN.PEN SUBCUT SCH (09:26)
--- NOTE | 2018-09-16 10:41 | RADIOLOGY REPORT (SQ) ---
EXAM DESCRIPTION: MRI LT LOWER EXTREMITY WITHOUT COMPLETED DATE/TIME: 09/16/2018 10:28 am REASON FOR STUDY: osteomyelitis COMPARISON: 09/14/2018. TECHNIQUE: Multiplanar imaging of the left forefoot to include fat and fluid sensitive sequences. LIMITATIONS: Limited clinical information. FINDINGS: BONE MARROW: No marrow signal alteration. Specifically no marrow replacement or marrow ed mahad. No evidence for osteomyelitis. No cortical break through. SOFT TISSUES: Mild soft tissue edema over the dorsal forefoot. No drainable collections. OTHER: No other significant finding. IMPRESSION: NO EVIDENCE FOR OSTEOMYELITIS. TECHNICAL DOCUMENTATION: JOB ID: [id number] [employer]- All Rights Reserved Reading location - IP/workstation name: [email or web address]
--- NOTE | 2018-09-16 12:52 | EKG REPORT ---
SEVERITY:- NORMAL ECG - SINUS RHYTHM : Confirmed by: Lui Silverio MD 16-Sep-2018 12:50:58
[2018-09-16] MEDS: INSULIN LISPRO 100 UNIT/ML 3 ML VIAL SUBCUT PRN (14:29)
[2018-09-16 15:17] VITALS: BP 115/79
--- NOTE | 2018-09-16 21:53 | PDOC DISCHARGE SUMMARY ---
General - Admit/Disc Date/PCP Admission Date/Primary Care Provider: 09/14/18 17:11 MACARIO CHARLES MD Discharge Date: 09/16/18 - Discharge Diagnosis (1) Diabetic ketoacidosis Is this a current diagnosis for this admission?: Yes (2) Acute kidney failure Is this a current diagnosis for this admission?: Yes - Additional Information Resuscitation Status: Full Code Discharge Activity: Activity As Tolerated Prescriptions: Aspirin [Adult Aspirin] 81 mg PO DAILY #30 tablet. Atorvastatin Calcium [Lipitor 40 mg Tablet] 40 mg PO QHS #30 tablet Metoprolol Tartrate [Lopressor 25 mg Tablet] 25 mg PO Q12 #60 tablet Sulfamethoxazole/Trimethoprim [Bactrim Ds Tablet] 1 each PO BID 7 Days #14 tablet Home Medications: Alprazolam [Xanax 0.5 mg Tablet] 0.5 mg PO BIDP PRN 09/15/18 Fluticasone Propionate [Flonase Nasal [place] 50 Mcg/[place] 16 gm] 2 sprays NASL D AILY 09/15/18 Gabapentin [Neurontin 100 mg Capsule] 100 mg PO QHS 09/15/18 Hydrocodone/Acetaminophen [Kendall 7.5-325 mg Tablet] 1 tab PO DAILYP PRN 09/15/18 Insulin Aspart [Novolog Insulin (Aspart) 100 unit/mL] 0 unit SQ DAILY MDD UP TO 50UNITS DAILY IN PUMP 09/15/18 Mv-Min/Vit C/Glut/Lysine/Hb124 [Immune Support Chewable Tablet] 1 each PO DAILY 09/15/18 Omeprazole 40 mg PO DAILY 09/15/18 Acetaminophen [Tylenol 650 mg Supp] 650 mg WA Q4HP PRN supp.rect 09/16/18 Aspirin [Adult Aspirin] 81 mg PO DAILY #30 tablet. 09/16/18 Atorvastatin Calcium [Lipitor 40 mg Tablet] 40 mg PO QHS #30 tablet 09/16/18 Metoprolol Tartrate [Lopressor 25 mg Tablet] 25 mg PO Q12 #60 tablet 09/16/18 Sulfamethoxazole/Trimethoprim [Bactrim Ds Tablet] 1 each PO BID 7 Days #14 tablet 09/16/18 History of Present Illness History of Present Illness: Admitting hospitalist's H&P: TELMA STUART is a 68 year old female with history of type 1 diabetes mellitus, COPD, emphysema brought to the emergency room by EMS. According to the ER notes and discussion with the ER physician the family found the patient in altered mental status and called the EMS EMS found the blood sugars are very high and in the emergency room patient arrived with altered mental status. Patient unable to provide much history. No complaints of fever shortness of breath or chest pains painful urination from the daughter. Apparently patient is taking antibiotics for left fourth toe infection for the last last 3-4 weeks. No other history is available. Hospital Course Hospital Course: This is a 68 yr female with history of COPD and diabetes mellitus who was initially brought into the acute encephalopathy and was found to be in DKA, acute renal failure was also noted to have lactic acidosis. Patient was given IV fluids and was started on insulin drip and was admitted to the ICU. Patient's DKA did resolved and her insulin drip was discontinued. Her CHACORTA also resolved with IV fluids. Her family did say she had a recent URTI and a toe inf ection on the left foot. These likely triggered her DKA. She was transitioned to Lantus and her diet was advanced. She uses an insulin pump at home but this was temporarily removed by her daughter when she was presented to the hospital. She will be resumed on her insulin pump on discharge. She was initially started on IV antibiotics for her toe infection. When this provider assumed care, the lesio n appears to be a small resolving furuncle with minimal erythema on the 4th toe of the left foot. She will be switched to PO Bactrim on discharge. Patient did have elevated troponins at 0.3 with unremarkable EKGs. She denied any chest pain or SOB. She was evaluated by cardiology who recommended stress testing here but patient says she felt fine and insisted on going home when her DKA resolved. Explained the importance and benefit of stress testing and patient says she prefers to do all her cardiac testing with her own machine bander and cellophaner helper at [place] next week as she can make an appt with him next week. Daughter was made aware of this as well and proceeded to say they will the defer the stress t est and schedule the testing with patient's own machine bander and cellophaner helper in [place] next week. Physical Exam Vital Signs: Temp Pulse Resp BP Pulse Ox 98.3 F 78 19 115/79 91 L 09/16/18 15:15 09/16/18 15:15 09/16/18 15:15 09/16/18 15:15 09/16/18 15:15 Intake & Output 09/15/18 09/16/18 09/17/18 06:59 06:59 06:59 Intake Total 5856 2806 1015 Output Total 1515 770 330 Balance 4341 2036 685 Weight 106 lb 14.787 oz 109 lb 9.116 oz General appearance: PRESENT: no acute distress, well-developed, well-nourished Head exam: PRESENT: atraumatic, normocephalic Eye exam: PRESENT: conjunctiva pink, EOMI, PERRLA. ABSENT: scleral icterus Ear exam: PRESENT: normal external ear exam Mouth exam: PRESENT: moist, tongue midline Neck exam: ABSENT: carotid bruit, JVD, lymphadenopathy, thyromegaly Respiratory exam: PRESENT: clear to auscultation reynold. ABSENT: rales, rhonchi, wheezes Cardiovascular exam: PRESENT: RRR. ABSENT: diastolic murmur, rubs, systolic murmur Pulses: PRESENT: normal dorsalis pedis pul GI/Abdominal exam: PRESENT: normal bowel sounds, soft. ABSENT: distended, guarding, mass, organolmegaly, rebound, tenderness Rectal exam: PRESENT: deferred Neurological exam: PRESENT: alert, awake, oriented to person, oriented to place, oriented to time, oriented to situation, CN II-XII grossly intact. ABSENT: motor sensory deficit Results Laboratory Results: 09/16/18 04:37 09/16/18 04:37 09/15/18 09/16/18 09/16/18 23:41 04:37 04:37 WBC 14.7 H RBC 3.59 L Hgb 10.4 L Hct 30.8 L MCV 86 MCH 28.9 MCHC 33.8 RDW 13.8 Plt Count 203 Seg Neutrophils % 81.9 H Lymphocytes % 10.2 L Monocytes % 4.2 Eosinophils % 3.4 Basophils % 0.3 Absolute Neutrophils 12.0 H Absolute Lymphocytes 1.5 Absolute Monocytes 0.6 Absolute Eosinophils 0.5 Absolute Basophils 0.0 Sodium 135.8 L 138.1 Potassium 3.5 L 3.5 L Chloride 106 106 Carbon Dioxide 23 26 Anion Gap 7 6 BUN 21 H 20 Creatinine 0.73 0.69 Est GFR ( Amer) > 60 > 60 Est GFR (Non-Af Amer) > 60 > 60 Glucose 142 H 114 H Calcium 8.0 L 8.3 L Magnesium 1.8 Total Bilirubin 0.5 0.7 AST 32 41 H ALT 27 23 Alkaline Phosphatase 83 92 Total Protein 5.0 L 5.3 L Albumin 2.7 L 2.8 L 09/14/18 14:15 Fernandez Catheter Urine Culture - Final NO GROWTH 2 DAYS 09/14/18 09/14/18 09/14/18 13:58 18:18 18:18 Creatine Kinase 52 CK-MB (CK-2) 1.77 Troponin I < 0.012 0.016 NT-Pro-B Natriuret Pep 09/14/18 09/14/18 09/15/18 23:44 23:44 05:55 Creatine Kinase 84 111 CK-MB (CK-2) 3.57 Troponin I 0.239 NT-Pro-B Natriuret Pep 09/15/18 09/16/18 05:55 04:37 Creatine Kinase CK-MB (CK-2) 3.87 Troponin I 0.852 0.384 NT-Pro-B Natriuret Pep 6250 H Impressions: Chest X-Ray 09/14/18 14:06 IMPRESSION: COPD. CHRONIC SCARRING. NO ACUTE RADIOGRAPHIC FINDING IN THE CHEST. Head CT 09/14/18 14:07 IMPRESSION: NORMAL BRAIN CT WITHOUT CONTRAST. EVIDENCE OF ACUTE STROKE: NO. Foot X-Ray 09/14/18 15:35 IMPRESSION: No plain film evidence for bony involvement by osteomyelitis. Other findings as noted above Lower Extremity MRI 09/16/18 00:00 IMPRESSION: NO EVIDENCE FOR OSTEOMYELITIS. Qualifiers - * PATIENT BEING DISCHARGED WITH ANY OF THE FOLLOWING DIAGNOSIS: No
[2018-09-17] MEDS ORDERED: VANCOMYCIN HCL 500 MG in DEXTROSE 5%-WATER 100 ML IV SCH (06:00)
== END 2018-09-16 15:57 | disposition home or self-care (01) | DRG 638 ==
LOC: ER 13:34 → EH 17:11 → ICU 22:38 → 4S 09-15 20:15
PROVIDERS: ADMIT Internal Medicine; ATTEND Internal Medicine
DX: E10.10 Type 1 diabetes mellitus with ketoacidosis without coma (principal); N17.9 Acute kidney failure, unspecified; E87.1 Hypo-osmolality and hyponatremia; Z96.41 Presence of insulin pump (external) (internal); J43.9 Emphysema, unspecified; I10 Essential (primary) hypertension; E03.9 Hypothyroidism, unspecified; E87.5 Hyperkalemia; F17.210 Nicotine dependence, cigarettes, uncomplicated; I48.91 Unspecified atrial fibrillation; Z79.899 Other long term (current) drug therapy; Z90.49 Acquired absence of other specified parts of digestive tract; Z79.82 Long term (current) use of aspirin; Z86.73 Personal history of transient ischemic attack (TIA), and cerebral infarction without residual deficits
CPT/HCPCS: 36415; 36600; 51702; 70450; 71045; 80048; 80053; 80061; 80307; 81001; 82550; 82553; 82803; 82947; 82962; 83036; 83605; 83735; 83880; 84443; 84484; 85025; 85610; 87040; 87086; 93005; 93010; 94640; 96361; 96365; 96366; 96368; 96375; 99285; J0610; J1335; J1650; J1815; J2543; J3370; J3480; J3490; J7030; J7060; S0028; S0119

== ENCOUNTER 2019-06-29 11:24 | Inpatient (IN) | payer MEDICARE, MEDICAID ==
[2019-06-29 12:07] LABS: VENOUS BLOOD BASE EXCESS -11.1 mmol/L; VENOUS BLOOD HCO3 14.9 mmol/L (20-32); VENOUS BLOOD PCO2 34.4 mmHg (35-63); VENOUS BLOOD PH 7.26 (7.30-7.42)
[2019-06-29] MEDS ORDERED: INSULIN REG, HUMAN 100 UNIT/ML 3 ML VIAL (PYX) IV ONE (12:13)
[2019-06-29] MEDS ORDERED: NORMAL SALINE 1000 ML 1,000 ML IV ONE ×2 (12:13→14:05)
[2019-06-29] MEDS ORDERED: ONDANSETRON HCL INJ/PF 4 MG/2 ML SDV IV ONE (12:13)
[2019-06-29 12:14] LABS: HEMATOCRIT 39.9 % (36.0-47.0); HEMOGLOBIN 13.1 g/dL (12.0-15.5); MEAN CORPUSCULAR HGB CONC 32.9 g/dL (32.0-36.0); MEAN CORPUSCULAR VOLUME 88 fl (80-97); PLATELET COUNT 257 10^3/uL (150-450); RED BLOOD COUNT 4.53 10^6/uL (3.72-5.28); RED CELL DISTRIBUTION WIDTH 13.5 % (11.5-14.0); WHITE BLOOD COUNT 11.2 10^3/uL (4.0-10.5)
[2019-06-29 12:15] LABS: ALBUMIN 3.9 g/dL (3.5-5.0); ALKALINE PHOSPHATASE 166 U/L (38-126); ANION GAP 16 (5-19); ASPARTATE AMINO TRANSFERASE 18 U/L (14-36); BILIRUBIN,DIRECT 0.1 mg/dL (0.0-0.4); BILIRUBIN,TOTAL 1.7 mg/dL (0.2-1.3); BLOOD UREA NITROGEN 19 mg/dL (7-20); CALCIUM 9.2 mg/dL (8.4-10.2); CARBON DIOXIDE 16 mmol/L (22-30); CHLORIDE 98 mmol/L (98-107); POTASSIUM 5.3 mmol/L (3.6-5.0); TOTAL PROTEIN 6.4 g/dL (6.3-8.2)
[2019-06-29] MEDS ORDERED: NORMAL SALINE 100 ML with INSULIN REGULAR, HUMAN 100 UNIT IV PRN ×2 (12:20)
[2019-06-29 12:27] LABS: GLUCOSE 546 mg/dL (75-110)
[2019-06-29 12:32] LABS: APPEARANCE,URINE SLIGHTLY-CLOUDY; BILIRUBIN,URINE NEGATIVE (NEGATIVE); COLOR,URINE STRAW; GLUCOSE, URINE >=500 mg/dL (NEGATIVE); KETONES,URINE 80 mg/dL (NEGATIVE); LEUKOCYTE ESTERASE,URINE TRACE (NEGATIVE); NITRITE,URINE NEGATIVE (NEGATIVE); PROTEIN,URINE NEGATIVE (NEGATIVE); URINE SPECIFIC GRAVITY 1.017; UROBILINOGEN,URINE NEGATIVE mg/dL (<2.0)
--- NOTE | 2019-06-29 12:36 | ER Document Report ---
ED Blood Sugar Problem - General Chief Complaint: High Blood Sugar Stated Complaint: GENERAL WEAKNESS Time Seen by Provider: 06/29/19 12:08 Primary Care Provider: MACARIO CHARLES MD [Primary Care Provider] - Follow up as needed TRAVEL OUTSIDE OF THE [place] IN LAST 30 DAYS: No - HPI Notes: This is a 69-year-old female with a history of insulin-dependent diabetes who presents today with a complaint of polyuria, polydipsia, generalized malaise and weakness for the past 2 days. Patient has had some nausea but no vomiting. She denies any abdominal pain. She denies any diarrhea. She denies any fever or chills. She denies any recent illness. She describes symptoms as moderate. She thinks her insulin pump might not be working appropriately. - Related Data Allergies/Adverse Reactions: No Known Allergies Allergy (Verified 09/14/18 14:22) Past Medical History - Social History Smoking Status: Current Every Day Smoker Frequency of alcohol use: None Drug Abuse: None Family History: Reviewed & Not Pertinent Patient has suicidal ideation: No Patient has homicidal ideation: No - Past Medical History Cardiac Medical History: Reports: Hx Hypertension Pulmonary Medical History: Reports: Hx COPD Neurological Medical History: Reports: Hx Cerebrovascular Accident Endocrine Medical History: Reports: Hx Diabetes Mellitus Type 1, Hx Hypothyroidism Renal/ Medical History: Denies: Hx Peritoneal Dialysis Psychiatric Medical History: Reports: Hx Depression Past Surgical History: Reports: Hx Appendectomy, Hx Cholecystectomy - Immunizations Hx Diphtheria, Pertussis, Tetanus Vaccination: No Review of Systems - Review of Systems Constitutional: denies: Fever Cardiovascular: denies: Chest pain, Palpitations Gastrointestinal: Nausea. denies: Abdominal pain, Diarrhea, Vomiting, Constipation Genitourinary: Frequency. denies: Burning, Dysuria, Urgency Neurological/Psychological: Weakness. denies: Headaches -: Yes All other systems reviewed and negative Physical Exam - Vital signs Vitals: Temp Pulse Resp BP Pulse Ox 97.6 F 138 H 18 131/58 H 97 06/29/19 11:38 06/29/19 11:38 06/29/19 11:38 06/29/19 11:38 06/29/19 11:38 Interpretation: Tachycardic - General General appearance: Appears well, Alert - Respiratory Respiratory status: No respiratory distress Chest status: Nontender Breath sounds: Normal Chest palpation: Normal - Cardiovascular Rhythm: Regular, Tachycardia Heart sounds: Normal auscultation Murmur: No - Abdominal Inspection: Normal Distension: No distension Bowel sounds: Normal Tenderness: Nontender Organomegaly: No organomegaly - Back Back: Normal, Nontender - Neurological Neuro grossly intact: Yes Cognition: Normal Orientation: AAOx4 Cyndy Coma Scale Eye Opening: Spontaneous Cyndy Coma Scale Verbal: Oriented Cyndy Coma Scale Motor: Obeys Commands Alden Coma Scale Total: 15 Speech: Normal Motor strength normal: LUE, RUE, LLE, RLE Sensory: Normal - Psychological Associated symptoms: Normal affect, Normal mood - Skin Skin Temperature: Warm Skin Moisture: Dry Skin Color: Normal Course - Re-evaluation Re-evalutation: 06/29/19 12:35 Clinical picture is concerning for DKA. Differential diagnosis includes hypoglycemia versus electrolyte abnormality versus dehydration. EKG shows sinus tachycardia at 134 bpm. Normal intervals. There is some rate related ST depression in the inferior leads. No elevation. 06/29/19 12:36 VBG shows acidosis. Clinically, I think patient is in DKA. We will start her on insulin drip. IV fluid bolus ordered. Awaiting the rest of her labs. 06/29/19 14:34 Patient reevaluated. Patient is doing a lot. Patient's care discussed with Dr. Eaton, last cleaner. Will admit patient for DKA. - Vital Signs Vital signs: Temp Pulse Resp BP Pulse Ox 97.6 F 138 H 18 137/66 H 97 06/29/19 11:38 06/29/19 11:38 06/29/19 14:01 06/29/19 14:01 06/29/19 14:01 - Laboratory Result Diagrams: 06/29/19 11:32 06/29/19 11:32 Laboratory results interpreted by me: 06/29/19 06/29/19 06/29/19 11:32 11:32 11:32 WBC 11.2 H Seg Neuts % (Manual) 90 H Band Neutrophils % 2 L Lymphocytes % (Manual) 4 L Abs Neuts (Manual) 10.3 H Abs Lymphs (Manual) 0.4 L VBG pH 7.26 L VBG pCO2 34.4 L VBG HCO3 14.9 L Sodium 130.1 L Potassium 5.3 H Carbon Dioxide 16 L Glucose 546 H* POC Glucose Total Bilirubin 1.7 H Alkaline Phosphatase 166 H Urine Glucose (UA) Urine Ketones Ur Leukocyte Esterase 06/29/19 06/29/19 06/29/19 11:35 12:12 13:59 WBC Seg Neuts % (Manual) Band Neutrophils % Lymphocytes % (Manual) Abs Neuts (Manual) Abs Lymphs (Manual) VBG pH VBG pCO2 VBG HCO3 Sodium Potassium Carbon Dioxide Glucose POC Glucose 521 H* 364 H Total Bilirubin Alkaline Phosphatase Urine Glucose (UA) >=500 H Urine Ketones 80 H Ur Leukocyte Esterase TRACE H Critical Care Note - Critical Care Note Total time excluding time spent on procedures (mins): 60 Comments: Critical time for evaluation and management of DKA. Discharge - Discharge Clinical Impression: Diabetic ketoacidosis Qualifiers: Diabetes mellitus type: type 1 Diabetes mellitus complication detail: without coma Qualified Code(s): E10.10 - Type 1 diabetes mellitus with ketoacidosis without coma Condition: Stable Disposition: ADMITTED INPATIENT Admitting Provider: Dr. Eaton - [facility] Admitted: ICU Referrals: MACARIO CHARLES MD [Primary Care Provider] - Follow up as needed
[2019-06-29 12:41] LABS: ABSOLUTE LYMPHOCYTES# (MANUAL) 0.4 10^3/uL (0.5-4.7); ABSOLUTE MONOCYTES # (MANUAL) 0.4 10^3/uL (0.1-1.4); BAND NEUTROPHILS % (MANUAL) 2 % (3-5); BASOPHILS % (MANUAL) 0 % (0-2); EOSINOPHILS % (MANUAL) 0 % (0-6); LYMPHOCYTES % (MANUAL) 4 % (13-45); MONOCYTES % (MANUAL) 4 % (3-13); SEGMENTED NEUTROPHILS % (MAN) 90 % (42-78); TOTAL CELLS COUNTED 100
[2019-06-29 12:42] LABS: OVALOCYTES SLIGHT; PLATELET COMMENT ADEQUATE; TEAR DROP CELLS SLIGHT
[2019-06-29] MEDS ORDERED: INSULIN REG, HUMAN 100 UNIT/ML 3 ML VIAL (PYX) ONE (13:01)
[2019-06-29] MEDS ORDERED: ACETAMINOPHEN 325 MG TABLET PO PRN (14:48)
[2019-06-29] MEDS ORDERED: DEXTROSE 50%-WATER 25 GM/50 ML DISP.SYRIN IV PRN ×2 (14:48)
[2019-06-29] MEDS ORDERED: GLUCAGON,HUMAN RECOMB 1 MG INJ SUBCUT PRN (14:48)
[2019-06-29] MEDS ORDERED: DEXTROSE 40% GEL 15 GM TUBE PO PRN ×2 (14:48)
[2019-06-29] MEDS ORDERED: NORMAL SALINE 1000 ML 1,000 ML IV PRN (14:56)
[2019-06-29] MEDS ORDERED: DEXTROSE 5%-NORMAL SALINE 1,000 ML IV PRN (14:57)
[2019-06-29] MEDS ORDERED: ONDANSETRON HCL INJ/PF 4 MG/2 ML SDV IV PRN (14:58)
[2019-06-29 16:38] VITALS: BP 129/60
--- NOTE | 2019-06-29 16:47 | CRITICAL CARE ADMISSION REPORT ---
HPI Date:: 06/29/19 Reason for ICU Reason:: DKA HPI: Pt is a 68 yo woman with type I DM and who uses an insulin pump. She presents to the ED today c/o a several day history of malaise, nausea, increased thirst, and frequent urination. In the ED, she was found to be in DKA with a blood sugar of 547 and a serum bicarb of 16. She was given IVF and started on an insulin drip. She denies any sick contacts, fever, chills, abdominal pain. She does report chest pain and shortness of air this am. Pt is hungry and is asking for something to eat. Past Medical History Cardiac Medical History: Reports: Hypertension Pulmonary Medical History: Reports: Chronic Obstructive Pulmonary Disease (COPD) Endocrine Medical History: Reports: Diabetes Mellitus Type 1, Hypothyroidism Psychiatric Medical History: Reports: Depression Past Surgical History Past Surgical History: Reports: Appendectomy, Cholecystectomy Social/Family History - Social History Smoking Status: Current Every Day Smoker Frequency of Alcohol Use: None Hx Recreational Drug Use: No Hx Prescription Drug Abuse: No - Medication/Allergies Allergies/Adverse Reactions: No Known Allergies Allergy (Verified 09/14/18 14:22) Review of Systems Review of Systems: per HPI Physical Exam Vital Signs: Temp Pulse Resp BP Pulse Ox 97.6 F 138 H 18 137/66 H 97 06/29/19 11:38 06/29/19 11:38 06/29/19 14:01 06/29/19 14:01 06/29/19 14:01 Intake & Output 06/28/19 06/29/19 06/30/19 06:59 06:59 06:59 Intake Total 1005 Balance 1005 Weight 55.2 kg Weight/Height Weight 55.2 kg Height 5 ft 5 in General appearance: PRESENT: no acute distress, well-developed, well-nourished Head exam: PRESENT: atraumatic, normocephalic Respiratory exam: PRESENT: clear to auscultation reynold, unlabored Cardiovascular exam: PRESENT: tachycardia GI/Abdominal exam: PRESENT: soft - non-tender, non-distended Extremities exam: PRESENT: other - no edema Laboratory/Radiographs Laboratory Results: 06/29/19 11:32 06/29/19 11:32 06/29/19 06/29/19 06/29/19 11:32 11:32 11:32 WBC 11.2 H RBC 4.53 Hgb 13.1 Hct 39.9 MCV 88 MCH 29.0 MCHC 32.9 RDW 13.5 Plt Count 257 Seg Neutrophils % Not Reportable VBG pH 7.26 L VBG pCO2 34.4 L VBG HCO3 14.9 L VBG Base Excess -11.1 Sodium 130.1 L Potassium 5.3 H Chloride 98 Carbon Dioxide 16 L Anion Gap 16 BUN 19 Creatinine 0.69 Est GFR ( Amer) > 60 Glucose 546 H* Calcium 9.2 Magnesium Total Bilirubin 1.7 H AST 18 Alkaline Phosphatase 166 H Total Protein 6.4 Albumin 3.9 Urine Color Urine Appearance Urine pH Ur Specific [place] Urine Protein Urine Glucose (UA) Urine Ketones Urine Blood Urine Nitrite Ur Leukocyte Esterase Urine WBC (Auto) Urine RBC (Auto) 06/29/19 06/29/19 11:32 12:12 WBC RBC Hgb Hct MCV MCH MCHC RDW Plt Count Seg Neutrophils % VBG pH VBG pCO2 VBG HCO3 VBG Base Excess Sodium Potassium Chloride Carbon Dioxide Anion Gap BUN Creatinine Est GFR ( Amer) Glucose Calcium Magnesium 1.8 Total Bilirubin AST Alkaline Phosphatase Total Protein Albumin Urine Color STRAW Urine Appearance SLIGHTLY-CLOUDY Urine pH 6.0 Ur Specific [place] 1.017 Urine Protein NEGATIVE Urine Glucose (UA) >=500 H Urine Ketones 80 H Urine Blood NEGATIVE Urine Nitrite NEGATIVE Ur Leukocyte Esterase TRACE H Urine WBC (Auto) 4 Urine RBC (Auto) 2 EKG: EKG: sinus tachycardia, ST depression in inferior leads. Critical Time -: The care of a critically ill patient is dynamic. This note represents a static moment in the admission process. orders and treatments may be given simulata neously and urgentl, and time is not livestock sales representative of the treatment process. This patient requires Critical Care secondary to life threating organ or limb dysfunction. Without the need for Critical Care services, the patient is at risk for increasid mortality and morbidity. Provider Note Provider Note: Assessment: 69 yo woman with DKA, type I DM. Plan: 1. Respiratory: stable on room air 2. CV. sinus tachycardia due to DKA. Will hydrate with IVF. ischemic changes on EKG. Will check troponins and repeat an EKG in am 3. Endocrine: type I DM, DKA. Continue IVF and insulin drip. BMPs every 6 hours. Pt is seen by an bisque kiln placer in [place] 4. ID: leukocytosis. Probably reactive. Will follow. Will check CXR 5. Nutrition: diabetic diet 6. Prophylaxis lovenox
[2019-06-29 17:49] LABS: ANION GAP 8 (5-19); BLOOD UREA NITROGEN 19 mg/dL (7-20); CARBON DIOXIDE 21 mmol/L (22-30); CHLORIDE 105 mmol/L (98-107); GLUCOSE 133 mg/dL (75-110)
[2019-06-29 17:58] LABS: POTASSIUM 4.1 mmol/L (3.6-5.0)
[2019-06-29] MEDS ORDERED: INSULIN REG, HUMAN 100 UNIT/ML 3 ML VIAL (PYX) SUBCUT SCH (18:15)
--- NOTE | 2019-06-29 20:38 | PDOC DISCHARGE SUMMARY ---
Impression - Admit/DC Date/PCP Admission Date/Primary Care Provider: 06/29/19 14:35 MACARIO CHARLES MD Discharge Date: 06/29/19 - Additional Information Resuscitation Status: Full Code Discharge Diet: Diabetic Discharge Activity: Activity As Tolerated Referrals: MACARIO CHARLES MD [Primary Care Provider] - Follow up as needed Home Medications: Alprazolam [Xanax 0.5 mg Tablet] 0.5 mg PO DAILYP PRN 06/29/19 Diphenoxylate HCl/Atropine [Lomotil 2.5-0.025 mg Tablet] 2 tab PO QIDP PRN 06/29/19 Gabapentin [Neurontin 100 mg Capsule] 100 mg PO QHS 06/29/19 Hydrocodone/Acetaminophen [[place] 10-325 mg Tablet] 1 tab PO BIDP PRN 06/29/19 Insulin Detemir [Levemir] 27 units SQ DAILY 06/29/19 Isosorbide Mononitrate [Imdur 60 mg Tablet.er] 60 mg PO DAILY 06/29/19 Levothyroxine Sodium [Synthroid] 200 mcg PO Q6AM 06/29/19 Lisinopril [Prinivil 2.5 mg Tablet] 2.5 mg PO DAILY 06/29/19 Metoprolol Succinate [Toprol Xl 50 mg Tab.sr] 50 mg PO DAILY 06/29/19 Ranitidine HCl [Zantac] 150 mg PO DAILY 06/29/19 Trazodone HCl [Desyrel] 100 mg PO QHS 06/29/19 History of Present Illiness History of Present Illness: Pt is a 69 yo woman with type I DM who presented in t DKA. She was given IVF and started on an insulin drip and admitted to the ICU Hospital Course Hospital Course: Pt was admitted to the ICU and her insulin drip was continued. Her DKA resolved shortly after her admission and she was transitioned to lantus and SSI. Pt decided to leave AMA Physical Exam Vital Signs: Temp Pulse Resp BP Pulse Ox 98.6 F 87 15 129/60 H 99 06/29/19 16:35 06/29/19 17:11 06/29/19 16:35 06/29/19 16:35 06/29/19 16:35 Intake & Output 06/28/19 06/29/19 06/30/19 06:59 06:59 06:59 Intake Total 1017 Balance 1017 Weight 49.1 kg Results Laboratory Results: WBC 11.2 10^3/uL (4.0-10.5) H 06/29/19 11:32 RBC 4.53 10^6/uL (3.72-5.28) 06/29/19 11:32 Hgb 13.1 g/dL (12.0-15.5) 06/29/19 11:32 Hct 39.9 % (36.0-47.0) 06/29/19 11:32 MCV 88 fl (80-97) 06/29/19 11:32 MCH 29.0 pg (27.0-33.4) 06/29/19 11:32 MCHC 32.9 g/dL (32.0-36.0) 06/29/19 11:32 RDW 13.5 % (11.5-14.0) 06/29/19 11:32 Plt Count 257 10^3/uL (150-450) 06/29/19 11:32 Lymph % (Auto) Not Reportable 06/29/19 11:32 [place] % (Auto) Not Reportable 06/29/19 11:32 Eos % (Auto) Not Reportable 06/29/19 11:32 Baso % (Auto) Not Reportable 06/29/19 11:32 Absolute Neuts (auto) Not Reportable 06/29/19 11:32 Absolute Lymphs (auto) Not Reportable 06/29/19 11:32 Absolute Monos (auto) Not Reportable 06/29/19 11:32 Absolute Eos (auto) Not Reportable 06/29/19 11:32 Absolute Basos (auto) Not Reportable 06/29/19 11:32 Total Counted 100 06/29/19 11:32 Seg Neutrophils % Not Reportable 06/29/19 11:32 Seg Neuts % (Manual) 90 % (42-78) H 06/29/19 11:32 Band Neutrophils % 2 % (3-5) L 06/29/19 11:32 Lymphocytes % (Manual) 4 % (13-45) L 06/29/19 11:32 Monocytes % (Manual) 4 % (3-13) 06/29/19 11:32 Eosinophils % (Manual) 0 % (0-6) 06/29/19 11:32 Basophils % (Manual) 0 % (0-2) 06/29/19 11:32 Abs Neuts (Manual) 10.3 10^3/uL (1.7-8.2) H 06/29/19 11:32 Abs Lymphs (Manual) 0.4 10^3/uL (0.5-4.7) L 06/29/19 11:32 Abs Monocytes (Manual) 0.4 10^3/uL (0.1-1.4) 06/29/19 11:32 Absolute Eos (Manual) 0.0 10^3/uL (0.0-0.6) 06/29/19 11:32 Abs Basophils (Manual) 0.0 10^3/uL (0.0-0.2) 06/29/19 11:32 Platelet Comment ADEQUATE 06/29/19 11:32 Tear Drop Cells SLIGHT 06/29/19 11:32 Ovalocytes SLIGHT 06/29/19 11:32 VBG pH 7.26 (7.30-7.42) L 06/29/19 11:32 VBG pCO2 34.4 mmHg (35-63) L 06/29/19 11:32 VBG HCO3 14.9 mmol/L (20-32) L 06/29/19 11:32 VBG Base Excess -11.1 mmol/L 06/29/19 11:32 Sodium 134.2 mmol/L (137-145) L 06/29/19 17:09 Potassium 4.1 mmol/L (3.6-5.0) D 06/29/19 17:09 Chloride 105 mmol/L (98-107) 06/29/19 17:09 Carbon Dioxide 21 mmol/L (22-30) L 06/29/19 17:09 Anion Gap 8 (5-19) 06/29/19 17:09 BUN 19 mg/dL (7-20) 06/29/19 17:09 Creatinine 0.57 mg/dL (0.52-1.25) 06/29/19 17:09 Est GFR ( Amer) > 60 (>60) 06/29/19 17:09 Est GFR (MDRD) Non-Af > 60 (>60) 06/29/19 17:09 Glucose 133 mg/dL (75-110) H 06/29/19 17:09 POC Glucose 168 mg/dL (70-110) H 06/29/19 16:36 Calcium 9.0 mg/dL (8.4-10.2) 06/29/19 17:09 Magnesium 1.8 mg/dL (1.6-2.3) 06/29/19 11:32 Total Bilirubin 1.7 mg/dL (0.2-1.3) H 06/29/19 11:32 Direct Bilirubin 0.1 mg/dL (0.0-0.4) 06/29/19 11:32 Neonat Total Bilirubin Not Reportable 06/29/19 11:32 Neonat Direct Bilirubin Not Reportable 06/29/19 11:32 Neonat Indirect Bili Not Reportable 06/29/19 11:32 AST 18 U/L (14-36) 06/29/19 11:32 ALT 14 U/L (<35) 06/29/19 11:32 Alkaline Phosphatase 166 U/L (38-126) H 06/29/19 11:32 Troponin I < 0.012 ng/mL 06/29/19 11:32 Total Protein 6.4 g/dL (6.3-8.2) 06/29/19 11:32 Albumin 3.9 g/dL (3.5-5.0) 06/29/19 11:32 Urine Color STRAW 06/29/19 12:12 Urine Appearance SLIGHTLY-CLOUDY 06/29/19 12:12 Urine pH 6.0 (5.0-9.0) 06/29/19 12:12 Ur Specific [place] 1.017 06/29/19 12:12 Urine Protein NEGATIVE mg/dL (NEGATIVE) 06/29/19 12:12 Urine Glucose (UA) >=500 mg/dL (NEGATIVE) H 06/29/19 12:12 Urine Ketones 80 mg/dL (NEGATIVE) H 06/29/19 12:12 Urine Blood NEGATIVE (NEGATIVE) 06/29/19 12:12 Urine Nitrite NEGATIVE (NEGATIVE) 06/29/19 12:12 Urine Bilirubin NEGATIVE (NEGATIVE) 06/29/19 12:12 Urine Urobilinogen NEGATIVE mg/dL (<2.0) 06/29/19 12:12 Ur Leukocyte Esterase TRACE (NEGATIVE) H 06/29/19 12:12 Urine WBC (Auto) 4 /HPF 10/01/19 12:12 Urine RBC (Auto) 2 /HPF 06/29/19 12:12 Squamous Epi Cells Auto 6 /HPF 06/29/19 12:12 Urine Mucus (Auto) RARE /LPF 06/29/19 12:12 Urine Ascorbic Acid NEGATIVE (NEGATIVE) 06/29/19 12:12 06/29/19 11:32 Troponin I < 0.012 Stroke Is this a Stroke Patient?: No Acute Heart Failure - Is this a Heart Failure Patient?: No
--- NOTE | 2019-06-29 20:54 | EKG REPORT ---
SEVERITY:- ABNORMAL ECG - SINUS TACHYCARDIA BORDERLINE IVCD WITH LAD INFERIOR INFARCT, AGE INDETERMINATE : Confirmed by: Tiff Rutherford MD 29-Jun-2019 20:54:11
[2019-06-29] MEDS ORDERED: INSULIN GLARGINE,HUM.REC.ANLOG 1,000 UNIT/10 ML VIAL SUBCUT SCH (22:00)
[2019-06-30] MEDS ORDERED: ENOXAPARIN SODIUM INJ 40 MG/0.4 ML DISP.SYRIN SUBCUT SCH (10:00)
== END 2019-06-29 18:29 | disposition left against medical advice (07) | DRG 639 ==
LOC: ER 11:24 → EH 14:35 → ICU 16:25
PROVIDERS: ADMIT Internal Medicine; ATTEND Internal Medicine
DX: E10.10 Type 1 diabetes mellitus with ketoacidosis without coma (principal); R35.8 Other polyuria; I10 Essential (primary) hypertension; J44.9 Chronic obstructive pulmonary disease, unspecified; F32.9 Major depressive disorder, single episode, unspecified; F17.210 Nicotine dependence, cigarettes, uncomplicated; Z86.73 Personal history of transient ischemic attack (TIA), and cerebral infarction without residual deficits
CPT/HCPCS: 36415; 80053; 81001; 82010; 82803; 82962; 83735; 84484; 85025; 93005; 93010; 96361; 96374; 99291; J1815; J2405; J7030; J7042